=== PATIENT | female | born 1940 | race Caucasian/White ===

== ENCOUNTER → 2017-04-12 | Outpatient (CLI) | payer MEDICARE ==
[~2017-04-12] MED LIST: (None)15 GM TOP; ALBU90OI61 INH; AMLO5 PO; AMOCLA875 PO; ASPIRIN-DIPYRI1 EACH PO; Advair Hfa 230-12 GM INH; BISA10S PR; BUDE32NIS; BUME1 PO; CLON.1 PO; DIPASPER PO; DULO60 PO; Econazole Nitra15 GM; Exforge 5-1601 EACH PO; FLUC150A; FLUSAL2505 INH; FURO40; GABA300; HYDRA50 PO; K-Dur10 MEQ; LIDO5TP TD; LOSA50 PO; Lyrica100 MG PO; METO50 PO; Milk Of Ma800 MG/5 M PO; Minocycline HC100 M1; Mupirocin22 GM; OXYC5 PO; PANT40 PO; POTCHL10ER PO; Pantoprazole So40 MG PO; SODCHL.65S; Sulfamethoxazo1 EAC4; Systane 0.3-0.1 EACH IO; TRAZ100 PO; TRAZ50 PO; Ventolin Soln3 ML NEB; ZYRTEC10 M2 PO
== END | disposition home or self-care (01) ==
LOC: LAB 16:26
DX: D50.0 Iron deficiency anemia secondary to blood loss (chronic) (principal); G93.40 Encephalopathy, unspecified; R60.0 Localized edema; G60.9 Hereditary and idiopathic neuropathy, unspecified; M62.81 Muscle weakness (generalized)
CPT/HCPCS: 82607; 82746